=== PATIENT | male | born 1970 | race Two or more races ===

== ENCOUNTER 2020-03-31 08:10 | Outpatient (CLI) | payer OTHER | END 2020-03-31 08:41 | disposition home or self-care (01) | LOC: NUCLEAR 08:10 | DX: E05.80 Other thyrotoxicosis without thyrotoxic crisis or storm (principal) | CPT/HCPCS: 78012; A9531 ==

== ENCOUNTER 2020-04-01 07:43 | Outpatient (CLI) | payer OTHER | END 2020-04-01 07:46 | disposition home or self-care (01) | LOC: NUCLEAR 07:43 | DX: E05.80 Other thyrotoxicosis without thyrotoxic crisis or storm (principal) | CPT/HCPCS: 78013; A9512 ==